=== PATIENT | male | born 1985 | race African-American/Black ===

== ENCOUNTER 2019-09-24 06:47 | Emergency (ER) | payer BC, SELFPAY ==
--- NOTE | ~2019-09-24 | CT_ITS ---
EXAMINATION: CT abdomen pelvis wo con DATE: 09/24/2019 07:57 INDICATION: Left flank pain. TECHNIQUE: Computed tomography (CT) of the abdomen and pelvis was performed without intravenous contr ast. Automated exposure control and iterative reconstruction technique were employed. The dose-length product was 211.67 mGy-cm. COMPARISON: CT abdomen and pelvis 04/17/2019 FINDINGS: The visualized portions of the lung bases are clear without pneumonia or pleural effusion. The heart size is normal. No pericardial effusion. The liver, gallbladder, spleen, pancreas, adrenal glands, and kidneys are normal. There is no urolithiasis. There are surgical changes of small bowel. There is dilated small bowel in left abdomen. The appendix is normal. There are no pathologically enl arged lymph nodes. There is no free intraperitoneal fluid. There is mild thoracolumbar spondylosis. T here is bilateral sacroiliitis, likely inflammatory bowel disease related arthritis. IMPRESSION: 1. Dilated small bowel in left abdomen, likely adynamic ileus. Reviewed, dictated and finalized at location A.
[2019-09-24 07:05] VITALS: BP 140/71; PULSE 82; RESP 20; TEMP 36.5; O2SAT 97
--- NOTE | 2019-09-24 07:16 | ED.ABDPAIN ---
HPI - Abdominal Pain General Chief Complaint: Abdominal Pain Stated Complaint: abd pain Source: patient Mode of arrival: ambulatory Limitations: no limitations History of Present Illness HPI narrative: this is a 34-year-old male with history of Crohn's disease other presents with some chronic abdominal pain that is been off and on for the last 2 to 3 months does have a GI doctor that he follows with. Currently having increased pain that is in his left lower quadrant and into his low left flank area with no nausea vomiting no fever chills no diarrhea constipation his belly is soft it is mildly tender with no dysuria no hematuria. Patient takes chronic opioids for pain relief. MD elicited complaint: abdominal pain and flank pain Pertinent past history: other ( Crohn's disease) Onset (ago): month(s) Pain Consistency: intermittent Location: LLQ and L flank Severity: mild Pain scale (0-10): 5 Quality: dull Radiation: L flank Migration to: LLQ Exacerbating factors: nothing Relieving factors: nothing Associated symptoms: denies other symptoms Related Data Home Medications Medication Instructions Recorded Confirmed alprazolam 0.5 mg PO PRN PRN 09/24/19 09/24/19 budesonide-formoterol 2 puff INHALATION PRN PRN 09/24/19 09/24/19 methocarbamol 750 mg PO DAILY 09/24/19 09/24/19 zolpidem 10 mg PO HS 09/24/19 09/24/19 Allergies Allergy/AdvReac Type Severity Reaction Status Date / Time promethazine Allergy Severe Siezure Verified 08/19/18 18:29 diphenhydramine Allergy Intermediate Hives / Verified 08/19/18 18:29 Red Face ketorolac Allergy Intermediate Verified 08/19/18 18:29 metoclopramide Allergy Intermediate Hives / Verified 08/19/18 18:29 Red Face metronidazole Allergy Intermediate Hives / Verified 08/19/18 18:29 Red Face morphine Allergy Intermediate Hives / Verified 08/19/18 18:29 Red Face tramadol Allergy Intermediate Hives / Verified 08/19/18 18:29 Red Face Review of Systems Review of Systems: All systems reviewed & are unremarkable except as noted in HPI and below PMFSH Past Medical History Medical History Crohn's disease Surgical History Surgical History History of bowel resection Family History Family History Mother Congestive heart failure Father Diabetes mellitus Social History Social History Smoking packs per day: 0.5 Smoking cigarettes per day: 10.0 Years smoked: 20 Smoking pack-years: 10.00 Smoking status: Light tobacco smoker Tobacco type: cigarettes Second hand tobacco smoke exposure: Yes Alcohol intake: current Drinks per week: 2 Substance use: never Substance use type: does not use Gender identity (if verbalized by the patient): Male Spiritual care concerns: No Agree to blood products: Yes Exam Const: General: no acute distress and alert Nutritional Appearance: well nourished Orientation/consciousness: patient oriented x3 HENMT: Head: normal to inspection Eyes: Conjunctivae: conjunctivae normal Pupils: Equal, round and reactive pupils present Neck: Neck: normal visual inspection Chest: Chest palpation & inspection: normal inspection of the chest Resp: Effort & Inspection: normal respiratory effort Cardio: Rate: regular rate Rhythm: regular rhythm GI: GI Palp: Yes Soft to palpation and Yes Tenderness to palpation present (GI) : Male General Exam: Yes normal external exam Testes: Testes normal Skin: General skin exam: normal color Rashes: no rashes Neuro: General: patient oriented x3, moves all extremities and no meningeal signs Extrem: General: normal to inspection Psych: Mental Status: mental status grossly normal Course Vital Signs Vital signs: Vital Signs Temperature 36.5 C 04
[2019-09-24 07:39] LABS: Mean Corpuscular HGB Conc 34.1 g/dL (32.0-36.0); Mean Corpuscular Hemoglobin 28.6 pg (27.0-31.0); Mean Platelet Volume 8.3 fl (8.7-11.0); Platelet Count Result 423 K/mm3 (150-420); Red Blood Count 5.24 M/mm3 (4.70-6.10); Red Cell Distribution Width 13.6 % (11.6-14.4); White Blood Count 13.2 K/mm3 (4.8-10.8)
[2019-09-24 07:40] LABS: Add Urine Microscopic? NO; Appearance Urine Clear (Clear); Bilirubin Urine Negative (Negative); Blood Urine Negative (Negative); Color Urine Yellow (Yellow); Glucose Urine UA Negative (Negative); Ketones Urine Negative (Negative); Leukocyte Esterase Ur Negative (Negative); Nitrate Urine Negative (Negative); Protein Urine Negative (Negative); Urobilinogen Urine 0.2 mg/dL (0.2-1.0); pH Urine 6.5 (5.0-8.0)
[2019-09-24 07:55] LABS: Alanine Aminotransferase 17 U/L (16-63); Alkaline Phosphatase 164 U/L (46-116); Anion Gap 14.2 mmol/L (7-16); Aspartate Amino Transferase 20 U/L (15-37); Bilirubin,Total 0.7 mg/dL (0.00-1.00); Blood Urea Nitrogen 6 mg/dL (7-18); Calcium 8.5 mg/dL (8.5-10.1); Carbon Dioxide 25 mmol/L (21-32); Chloride 105 mmol/L (98-108); Estimated CRCL calculation 85 ml/min; Estimated Glomerular Filt Rate > 60; Glucose 92 mg/dL (70-99); Lipase 312 U/L (73-393); Osmolality Calculated 287 mOsm/kg (285-295); Potassium 4.2 mmol/L (3.5-5.1); Sodium 140 mmol/L (136-145); Total Protein 6.9 g/dL (6.4-8.2)
[2019-09-24 08:20] VITALS: BP 110/75; PULSE 80; RESP 20; TEMP 36.6; O2SAT 99
== END 2019-09-24 08:27 | disposition home or self-care (01) ==
PROVIDERS: Emergency Provider Emergency Medicine; PCP Nurse Practitioner Adult Health
DX: K56.0 Paralytic ileus (principal); R10.32 Left lower quadrant pain; K50.90 Crohn's disease, unspecified, without complications
CPT/HCPCS: 36415; 74176; 80053; 81003; 83605; 83690; 85027; 96365; 99283; 99284; J0131

== ENCOUNTER 2019-10-26 09:31 | Emergency (ER) | payer BC, SELFPAY ==
--- NOTE | ~2019-10-26 | XR_ITS ---
XR chest 2V DATE: 10/26/2019 11:45 INDICATION: Shortness of breath TECHNIQUE: PA and lateral views COMPARISON: None FINDINGS: Bilateral hyperinflation. No pulmonary infiltrate or consolidation, pleural effusion or pul monary vascular congestion or pneumothorax. Normal heart size. No hilar or mediastinal enlargement. Included skeletal structures are unremarkable . There is bilateral excretion of contrast material by the kidneys. IMPRESSION: Bilateral hyperinflation; no active cardiopulmonary disease Reviewed, dictated and finalized at location A.
--- NOTE | ~2019-10-26 | CT_ITS ---
EXAMINATION: CT abdomen pelvis w con DATE: 10/26/2019 11:40 INDICATION: Analyzed abdominal pain and back pain. TECHNIQUE: Computed tomography (CT) of the abdomen and pelvis was performed with 100 mL Omnipaque-350 intravenous contrast. Automated exposure control and iterative reconstruction technique were employe d. The dose-length product was 204.28 mGy-cm. COMPARISON: 09/24/2019 FINDINGS: Lung bases are clear. Visualized inferior heart is normal. No pericardial or pleural effusion. Liver, gallbladder, spleen, pancreas, bilateral adrenal glands and kidneys are normal. Small bowel anastomo sis in the left lower quadrant. No abnormal bowel wall thickening or obstruction. Normal appendix. Di ffuse smooth bladder wall thickening. No free intraperitoneal gas or fluid. No pathologically enlarge d abdominal or pelvic lymphadenopathy. Prominent Schmorl's node along the inferior endplate of L2 whi ch also contains a large bone island. Relatively symmetric bilateral sacroiliitis likely inflammatory bowel disease related arthritis. IMPRESSION: 1. Diffuse smooth bladder wall thickening which can be seen with cystitis either acute or chronic. Co rrelate with urinalysis. 2. Small bowel anastomosis in the left lower quadrant and symmetric bilateral sacroiliitis, both find ings likely related to provided history of Crohn's disease. Reviewed, dictated and finalized at location A. IMPRESSION: 1. Diffuse smooth bladder wall thickening which can be seen with cystitis eithe r acute or chronic. Correlate with urinalysis. 2. Small bowel anastomosis in the left lower quadrant and symmetric bilateral s acroiliitis, both findings likely related to provided history of Crohn's diseas e.
[2019-10-26 10:04] VITALS: BP 111/61; PULSE 83; RESP 18; TEMP 36.6; O2SAT 98
[2019-10-26] MEDS: SODIUM CHLORIDE 0.9% IV 1,000 ML 999 ML IV CONT (10:28)
[2019-10-26] MEDS: ORPHENADRINE CITRATE 100 MG TABLET.ER PO (10:28)
[2019-10-26] MEDS: HYDROMORPHONE HCL 2 MG/ML VIAL IV PUSH (10:29)
[2019-10-26 10:53] LABS: Basophils Absolute Auto 0.05 K/mm3 (0.00-0.10); Basophils Percent Auto 0.5 % (0.0-1.0); Hematocrit 45.9 % (40.0-54.0); Hemoglobin 15.2 g/dL (14.0-18.0); Immature Granulocyte Absolute 0.05 K/mm3 (0.00-0.00); Immature Granulocyte Percent A 0.5 % (0.0-0.0); Lymphocytes Absolute Auto 1.63 K/mm3 (1.10-4.50); Lymphocytes Percent Auto 15.9 % (18.0-42.0); Mean Corpuscular HGB Conc 33.1 g/dL (32.0-36.0); Mean Corpuscular Hemoglobin 28.5 pg (27.0-31.0); Mean Platelet Volume 8.8 fl (8.7-11.0); Monocytes Percent Auto 10.7 % (2.0-11.0); Neutrophils Absolute Auto 7.3 K/mm3 (1.7-7.2); Neutrophils Percent Auto 71.4 % (50.0-70.0); Platelet Count Result 402 K/mm3 (150-420); Red Blood Count 5.34 M/mm3 (4.70-6.10); Red Cell Distribution Width 13.4 % (11.6-14.4); White Blood Count 10.3 K/mm3 (4.8-10.8)
[2019-10-26 11:11] LABS: Alanine Aminotransferase 29 U/L (16-63); Albumin Level 3.1 g/dL (3.4-5.0); Alkaline Phosphatase 174 U/L (46-116); Anion Gap 11.2 mmol/L (7-16); Aspartate Amino Transferase 25 U/L (15-37); Bilirubin,Total 0.9 mg/dL (0.00-1.00); Blood Urea Nitrogen 9 mg/dL (7-18); Calcium 8.5 mg/dL (8.5-10.1); Carbon Dioxide 30 mmol/L (21-32); Chloride 104 mmol/L (98-108); Estimated CRCL calculation 98 ml/min; Estimated Glomerular Filt Rate > 60; Glucose 87 mg/dL (70-99); Lipase 202 U/L (73-393); Osmolality Calculated 289 mOsm/kg (285-295); Potassium 4.2 mmol/L (3.5-5.1); Sodium 141 mmol/L (136-145); Total Protein 7.2 g/dL (6.4-8.2)
[2019-10-26 11:15] LABS: Add Urine Microscopic? NO; Appearance Urine Clear (Clear); Bilirubin Urine Negative (Negative); Blood Urine Negative (Negative); Color Urine Yellow (Yellow); Glucose Urine UA Negative (Negative); Ketones Urine Negative (Negative); Leukocyte Esterase Ur Negative (Negative); Nitrate Urine Negative (Negative); Protein Urine Negative (Negative); Specific Grav Ur 1.015 (1.010-1.020); Urobilinogen Urine 0.2 mg/dL (0.2-1.0)
[2019-10-26 11:52] VITALS: BP 98/58; PULSE 65; RESP 16; O2SAT 98
--- NOTE | 2019-10-26 11:59 | PC.NURSE ---
Pt requesting more pain meds, edp aware
--- NOTE | 2019-10-26 12:06 | ED.BACK ---
HPI - Back Pain/Injury General Chief Complaint: Back Pain/Injury Stated Complaint: back and abd area complications Source: patient Mode of arrival: ambulatory Limitations: no limitations History of Present Illness HPI Narrative: this is a 34-year-old male with a history of Crohn's disease that presents with abdominal pain and left lower back pain with no dysuria no hematuria no fever or chills there is some point tenderness in his lower back, there is no cough no fever abdominal pain is some lower abdomen with no radiation. MD elicited complaint: back pain Pertinent past history: prior back pain Onset (ago): day(s) Timing: intermittent Severity: moderate Pain scale (0-10): 8 Quality: aching and spasming Location: left lower back Radiation: abdomen Exacerbating factors: movement Relieving factors: immobilization Related Data Home Medications Medication Instructions Recorded Confirmed alprazolam 0.5 mg PO PRN PRN 09/24/19 10/26/19 budesonide-formoterol 2 puff INHALATION PRN PRN 09/24/19 10/26/19 zolpidem 10 mg PO HS 09/24/19 10/26/19 Allergies Allergy/AdvReac Type Severity Reaction Status Date / Time promethazine Allergy Severe Siezure Verified 08/19/18 18:29 diphenhydramine Allergy Intermediate Hives / Verified 08/19/18 18:29 Red Face ketorolac Allergy Intermediate Verified 08/19/18 18:29 metoclopramide Allergy Intermediate Hives / Verified 08/19/18 18:29 Red Face metronidazole Allergy Intermediate Hives / Verified 08/19/18 18:29 Red Face morphine Allergy Intermediate Hives / Verified 08/19/18 18:29 Red Face tramadol Allergy Intermediate Hives / Verified 08/19/18 18:29 Red Face Review of Systems Review of Systems: All systems reviewed & are unremarkable except as noted in HPI and below PMFSH Social History Social History Smoking packs per day: 0.5 Smoking cigarettes per day: 10.0 Years smoked: 20 Smoking pack-years: 10.00 Smoking status: Light tobacco smoker Tobacco type: cigarettes Second hand tobacco smoke exposure: Yes Alcohol intake: current Drinks per week: 2 Substance use: never Substance use type: does not use Gender identity (if verbalized by the patient): Male Spiritual care concerns: No Agree to blood products: Yes Exam Const: General: no acute distress and alert Orientation/consciousness: patient oriented x3 Limitations: altered mental status HENMT: Head: normal to inspection Eyes: Conjunctivae: conjunctivae normal Pupils: Equal, round and reactive pupils present EOM: EOMs intact bilaterally Neck: Neck: normal visual inspection and no lymphadenopathy Chest: Chest palpation & inspection: normal inspection of the chest Resp: Effort & Inspection: normal respiratory effort Auscultation: clear to auscultation bilaterally Cardio: Rate: regular rate Rhythm: regular rhythm GI: Auscultation: normal bowel sounds Back/Spine/Pelvis: Back: CVA tenderness Skin: General skin exam: normal color Rashes: no rashes Extrem: General: normal to inspection Psych: Mental Status: mental status grossly normal Course Course Emergency Course: Received some Dilaudid and pain had improved moderately, patient appears more comfortable is less abdominal and back pain. A CT scan of abdomen and pelvis was reviewed with patient and sent medication to patient's pharmacy with the recommendation to follow-up with his primary care physician. Vital Signs Vital signs: Vital Signs Temperature 36.6 C 10/26/19 10:04 Pulse Rate 83 10/26/19 10:04 Respiratory Rate 18 10/26/19 10:04 Blood Pressure 111/61 10/26/19 10:04 Pulse Oximetry 98 10/26/19 10:04 Temperature 36.6 C 10/26/19 10:04 Pulse Rate 65 10/26/19 11:52 Respiratory Rate 16 10/26/19 11:52 Blood Pressure 98/58 L 10/26/19 11:52 Pulse Oximetry 98 10/26/19 11:52 MDM - Back Pain/Injury Lab Data Result d
== END 2019-10-26 12:24 | disposition home or self-care (01) ==
PROVIDERS: Emergency Provider Emergency Medicine; PCP Nurse Practitioner Adult Health
DX: S39.012A Strain of muscle, fascia and tendon of lower back, initial encounter (principal); R10.30 Lower abdominal pain, unspecified
CPT/HCPCS: 36415; 71046; 74177; 80053; 81003; 83690; 85025; 96374; 99283; 99284; A9270; J1170; J7030; Q9965

== ENCOUNTER 2019-11-21 18:45 | Emergency (ER) | payer BC, SELFPAY ==
--- NOTE | ~2019-11-21 | CT_ITS ---
EXAMINATION: CT abdomen pelvis w con DATE: 11/21/2019 20:09 INDICATION: Left lower quadrant abdominal pain. Left flank pain. TECHNIQUE: Computed tomography (CT) of the abdomen and pelvis was performed with 100 mL Omnipaque 350 intravenous contrast. Automated exposure control and iterative reconstruction technique were employe d. The dose-length product was 171.09 mGy-cm. COMPARISON: CT abdomen and pelvis 10/26/2019 FINDINGS: The visualized portions of the lung bases are clear without pneumonia or pleural effusion. The heart size is normal. No pericardial effusion. The liver, gallbladder, spleen, and adrenal glands are normal. Pancreas divisum is noted. The kidneys are normal. There is a dilated loop of small manas l in right abdomen. There is focal small bowel wall thickening at the margin of the dilated loop. The re are no pathologically enlarged lymph nodes. There is no free intraperitoneal fluid. There is bilat eral sacroiliitis, consistent with inflammatory bowel disease associated arthropathy. There is mild t horacolumbar spondylosis. The appendix is normal. There is a small bowel anastomosis in left abdomen. IMPRESSION: 1. Focal small bowel wall thickening of right abdomen with adjacent dilated loop of small bowel, cons istent with partial small bowel obstruction. Reviewed, dictated and finalized at location A. IMPRESSION: 1. Focal small bowel wall thickening of right abdomen with adjacent dilated loo p of small bowel, consistent with partial small bowel obstruction.
[2019-11-21 19:06] VITALS: BP 95/63; PULSE 87; RESP 17; TEMP 36.7; O2SAT 97
[2019-11-21] MEDS: LACTATED RINGERS 1,000 ML 999 ML IV CONT (19:38)
[2019-11-21] MEDS: HYDROMORPHONE HCL 2 MG/ML VIAL 1 MG IV PUSH ×2 (19:38→21:10)
[2019-11-21 19:39] LABS: Add Urine Microscopic? YES; Appearance Urine Clear (Clear); Basophils Absolute Auto 0.05 K/mm3 (0.00-0.10); Basophils Percent Auto 0.5 % (0.0-1.0); Bilirubin Urine 1+ (Negative); Blood Urine Negative (Negative); Color Urine Yellow (Yellow); Eosinophils Absolute Auto 0.14 K/mm3 (0.02-0.50); Eosinophils Percent Auto 1.3 % (1.0-6.0); Glucose Urine UA Negative (Negative); Hematocrit 48.1 % (40.0-54.0); Hemoglobin 16.2 g/dL (14.0-18.0); Immature Granulocyte Absolute 0.05 K/mm3 (0.00-0.00); Immature Granulocyte Percent A 0.5 % (0.0-0.0); Ketones Urine Trace (Negative); Leukocyte Esterase Ur Negative LEU/UL (Negative); Lymphocytes Absolute Auto 2.02 K/mm3 (1.10-4.50); Lymphocytes Percent Auto 18.8 % (18.0-42.0); Mean Corpuscular HGB Conc 33.7 g/dL (32.0-36.0); Mean Corpuscular Hemoglobin 28.4 pg (27.0-31.0); Mean Corpuscular Volume 84.4 fL (78.0-102.0); Mean Platelet Volume 8.4 fl (8.7-11.0); Monocytes Absolute Auto 1.01 K/mm3 (0.10-0.90); Monocytes Percent Auto 9.4 % (2.0-11.0); Neutrophils Absolute Auto 7.5 K/mm3 (1.7-7.2); Neutrophils Percent Auto 69.5 % (50.0-70.0); Nitrate Urine Negative (Negative); Platelet Count Result 474 K/mm3 (150-420); Protein Urine Negative (Negative); Red Cell Distribution Width 13.2 % (11.6-14.4); White Blood Count 10.7 K/mm3 (4.8-10.8); pH Urine 7.5 (5.0-8.0)
[2019-11-21 19:45] LABS: RBC Urine None seen /hpf (0-2); Squamous Epithelial Cell Urine None seen /hpf (Few); WBC Urine None seen /hpf (0-3)
[2019-11-21 19:46] LABS: Bacteria Urine None seen /hpf; Mucus Urine Moderate /lpf
--- NOTE | 2019-11-21 19:47 | ED.ABDPAIN ---
HPI - Abdominal Pain General Chief Complaint: Abdominal Pain Stated Complaint: abdominal pain Source: patient Mode of arrival: ambulatory Limitations: no limitations History of Present Illness HPI narrative: 34 y.o. male with Crohn's Disease, s/p partial small and large bowel resection, c/o 3 days of severe left sided and left flank pain. Vomited chunks of food x 2 today; loose but formed stools x 3 today, streaked with blood and mucous. C/o fatigue. He's had abdominal pain off and on since July. His PCP put him on prednisone 40 in September, tapered to 20 mg x 1 month, then stopped 11/12/2019. His last injection of Stelara was in May. He lost his [employer] insurance in June, has had Medicaid for the last 6 weeks. He does not have a g.i. doctor at this point. Denies fevers/chills. Related Data Home Medications Medication Instructions Recorded Confirmed alprazolam 0.5 mg PO PRN PRN 09/24/19 11/22/19 budesonide-formoterol 2 puff INHALATION BID 09/24/19 11/22/19 zolpidem 10 mg PO HS 09/24/19 11/22/19 Allergies Allergy/AdvReac Type Severity Reaction Status Date / Time promethazine Allergy Severe Siezure Verified 08/19/18 18:29 diphenhydramine Allergy Intermediate Hives / Verified 08/19/18 18:29 Red Face ketorolac Allergy Intermediate Verified 08/19/18 18:29 metoclopramide Allergy Intermediate Hives / Verified 08/19/18 18:29 Red Face metronidazole Allergy Intermediate Hives / Verified 08/19/18 18:29 Red Face morphine Allergy Intermediate Hives / Verified 08/19/18 18:29 Red Face tramadol Allergy Intermediate Hives / Verified 08/19/18 18:29 Red Face Review of Systems Constitutional: Constitutional: Reports no additional constitutional complaints ENT: Denies dysphagia Cardiovascular: Cardiovascular: Denies chest pain Respiratory: Respiratory: Denies cough and Denies dyspnea Gastrointestinal: Gastrointestinal: Reports no additional gastrointestinal complaints Genitourinary: Genitourinary: Denies dysuria Musculoskeletal: Musculoskeletal: Denies arthralgias and Denies joint swelling Integumentary/Breasts: Skin/Breast: Denies rash Neurologic: Denies numbness Psychiatric: Psychiatric: Denies anxiety and Reports depression (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 motivational thinking 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) Hematologic/Lymphatic: Hematologic/Lymphatic: Denies easy bleeding PMFSH Past Medical History Medical History (Updated 11/22/19 @ 04:16 by Loida Palafox DO) Asthma Crohn's disease Depression Eczema Surgical History Surgical History (Updated 11/22/19 @ 04:16 by Loida Palafox DO) History of bowel resection X2: 8 ft bowel resected the 1st surgery and 4.5 feet resected 2nd surgery Family History Family History Mother Congestive heart failure Father Diabetes mellitus Social History Social History Smoking packs per day: 0.5 Smoking cigarettes per day: 10.0 Years smoked: 1 Smoking pack-years: 0.50 Smoking status: Current every day smoker Tobacco type: cigarettes Second hand tobacco smoke exposure: Yes Alcohol intake: never Drinks per week: 2 Substance use: current Substance use type: marijuana Last use: 11/21/2019 Gender identity (if verbalized by the patient): Male Spiritual care concerns: No Agree to blood products: Yes Exam Const: Other: appears to be in pain HENMT: Mouth: Yes moist mucous membranes Eyes: Other: no icterus Neck: Neck: lymphadenopathy noted Chest: Chest palpation & inspection: abnormal inspection of the chest Resp: Auscultation: clear to auscultation bilaterally Cardio: Rate: regular rate Rhythm: regular rhythm GI: GI Palp: Yes Tenderness to palpation present (GI) (left lateral abdomen and flank) and Yes Guarding due to palpation present (GI) Auscultation: Hypoactive bowel sounds present : General: Ye
[2019-11-21 19:56] LABS: Alanine Aminotransferase 23 U/L (16-63); Albumin Level 3.5 g/dL (3.4-5.0); Alkaline Phosphatase 206 U/L (46-116); Aspartate Amino Transferase 22 U/L (15-37); Bilirubin,Total 0.8 mg/dL (0.00-1.00); Blood Urea Nitrogen 8 mg/dL (7-18); Calcium 9.1 mg/dL (8.5-10.1); Carbon Dioxide 30 mmol/L (21-32); Chloride 100 mmol/L (98-108); Estimated Glomerular Filt Rate > 60; Glucose 83 mg/dL (70-99); Lipase 307 U/L (73-393); Osmolality Calculated 281 mOsm/kg (285-295); Sodium 137 mmol/L (136-145); Total Protein 8.1 g/dL (6.4-8.2)
--- NOTE | 2019-11-21 20:57 | PC.NURSE ---
[facility] CALLED FOR POSSIBLE TRANSFER
[2019-11-21 22:29] VITALS: BP 120/60
[2019-11-21] MEDS: methylPREDNISolone SOD SUCC 40 MG VIAL 80 MG IV PUSH (22:40)
[2019-11-21 23:02] VITALS: BP 107/77
== END 2019-11-21 23:05 | disposition short-term general hospital (02) ==
PROVIDERS: Emergency Provider Family Medicine; PCP Nurse Practitioner Adult Health
DX: K50.912 Crohn's disease, unspecified, with intestinal obstruction (principal)
CPT/HCPCS: 36415; 74177; 80053; 81001; 83690; 85025; 86140; 96361; 96374; 96375; 96376; 99285; J1170; J2920; J2930; J7120; Q9965

== ENCOUNTER 2019-11-21 23:45 | Inpatient (IN) | payer BC, SELFPAY ==
--- NOTE | ~2019-11-21 | XR_ITS ---
EXAMINATION: XR abdomen/kub 1V DATE: 11/22/2019 08:02 INDICATION: Partial small bowel obstruction. TECHNIQUE: A supine view of the abdomen was obtained. COMPARISON: CT abdomen and pelvis 11/21/2019 FINDINGS: There are staple lines in left abdomen. There are no dilated loops of bowel. There is a sma ll volume of stool in the colon. IMPRESSION: 1. Nonobstructive bowel gas pattern. Reviewed, dictated and finalized at location A.
[2019-11-21 23:40] VITALS: BMI 21.2
[2019-11-22] MEDS: SODIUM CHLORIDE 0.45% 1,000 ML 100 ML IV CONT (01:24)
[2019-11-22] MEDS: LORAZEPAM INJ 2 MG/ML VIAL 1 MG IV PUSH ×2 (01:24→21:58)
[2019-11-22] MEDS: HYDROMORPHONE HCL 1 MG/ML INJ IV PUSH ×6 (01:24→21:57)
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
[2019-11-22 06:52] LABS: Basophils Percent Auto 0.3 % (0.2-1.2); Hematocrit 47.3 % (42.0-52.0); Hemoglobin 15.9 g/dL (14.0-18.0); Immature Granulocyte Absolute 0.08 K/mm3 (0.00-0.031); Immature Granulocyte Percent A 0.6 % (0-0.5); Lymphocytes Absolute Auto 0.97 K/mm3 (0.9-3.2); Lymphocytes Percent Auto 7.4 % (18.3-44.2); Mean Corpuscular HGB Conc 33.6 g/dl (32-36); Mean Corpuscular Hemoglobin 28.6 pg (26-34); Mean Corpuscular Volume 85.1 fl (80-100); Monocytes Absolute Auto 0.1 K/mm3 (0.1-0.6); Monocytes Percent Auto 0.6 % (2.6-8.5); Neutrophils Absolute Auto 11.9 K/mm3 (1.3-6.7); Neutrophils Percent Auto 91.1 % (45.5-73.1); Platelet Count Result 452 k/mm3 (150-375); Red Blood Count 5.56 M/mm3 (4.6-6.20); Red Cell Distribution Width 13.1 % (11.5-14.5); White Blood Count 13.1 K/mm3 (4.5-10.0)
[2019-11-22 07:06] LABS: Blood Urea Nitrogen 11 mg/dL (9-20); Calcium 9.3 mg/dL (8.4-10.2); Carbon Dioxide 26 mmol/L (22-30); Chloride 102 mmol/L (98-107); Estimated CRCL calculation 107 ml/min; Estimated Glomerular Filt Rate > 60; Glucose 106 mg/dL (75-110); Potassium 4.4 mmol/L (3.4-5.0); Sodium 135 mmol/L (137-145)
[2019-11-22] MEDS: methylPREDNISolone SOD SUCC 125 MG VIAL 60 MG IV PUSH (09:08)
--- NOTE | 2019-11-22 10:34 | PM.IMPN ---
Progress Note: A&P Assessment and Plan (1) Crohn's disease: Qualifiers: Digestive disease complication type: with intestinal obstruction Gastrointestinal tract location: unspecified location Qualified Code(s): K50.912 - Crohn's disease, unspecified, with intestinal obstruction Code(s): K50.90 - Crohn's disease, unspecified, without complications Status: Acute Assessment and Plan: The patient has not been on his suppressive medications and has not seen his GI specialist due to lack of insurance over the last few months. He was given 1 dose of IV Solu-Medrol before transferring to our facility. We will continue with IV Solu-Medrol 60 mg q.8 hours Continue with IV fluid hydration GI started him on a full liquid diet and will slowly advanced as tolerated. Will continue monitoring the patient's symptoms and repeat labs in the morning. GIs input is greatly appreciated. (2) Partial small bowel obstruction: Code(s): K56.600 - Partial intestinal obstruction, unspecified as to cause Status: Acute Assessment and Plan: Likely due to the patient's Crohn's disease. General surgery discussed the patient's case with the ER provider at the outside facility and the surgeon felt the patient likely did not need a surgical consult since the patient had a partial small-bowel obstruction. Patient still reporting pain but would like to eat. GI started him on a full liquid diet. KUB from this morning is still pending. Will see how he does with eating and drinking and slowly advance his diet as tolerated.. Time Spent With Patient Time with patient: 25 - 35 minutes Subjective Date/time seen: 11/22/19 10:34 Interval history: Date of service 11/22/2019: Patient reports he is feeling better after getting the pain medications and steroids. He is still having some abdominal discomfort to his left lower quadrant mostly and currently it is a 7/10 but whenever he gets pain meds it dropped to about 3/10. He denies any fevers, chills. He would like to start eating at this time and has a full liquid tray at bedside. He also reports left flank pain which has been hurting him for the last 2 months which is worse with certain movements, twisting, bending, poking on the area. He denies any relief with the steroid taper he was on at home and denies any trauma to the area prior to pain beginning. He denies any nausea, vomiting, chest pain, shortness of breath, cough, diarrhea, hematochezia, melena, leg swelling, calf pain or any other symptoms at this time. Review of Systems Review of Systems: All systems reviewed & are unremarkable except as noted in HPI and below Exam Narrative: Exam Narrative: General: 34-year-old man sitting up in bed talking to the cleaning lady. Appears comfortable. In no acute distress. Skin: No jaundice or cyanosis. Good skin turgor. Neck: Full range of motion. Supple. Respiratory: Lungs are clear to auscultation bilaterally. No bony chest wall tenderness. Cardiovascular: The heart has a regular rate and rhythm without murmur. No carotid bruits. Lower extremities: No lower extremity edema. Distal pulses are easily palpated. No calf tenderness to palpation. Gastrointestinal: Tenderness to palpation of left lower quadrant, no rebound or guarding. The abdomen is otherwise soft, nondistended with active bowel sounds. Psychiatric: Lucid and oriented. Memory intact. Neurologic: No focal deficits. Speech is clear. No facial drooping. Objective Data Intake/Output Intake/Output: Intake & Output 11/19/19 11/20/19 11/21/19 11/22/19 23:59 23:59 23:59 23:59 Intake Total 0 Output Total 0 Balance 0 Meds/Results Medications: Active Medications Generic Name Dose Route Start Last Admin Trade Name Freq PRN Reason Stop Dose Admin Budesonide/Formoterol Fumarate 2 puff 11/22/19 08
--- NOTE | 2019-11-22 11:17 | WPDGICN ---
Assessment and Plan Assessment and plan (1) Crohn's disease of both small and large intestine with complication: Code(s): K50.819 - Crohn's disease of both small and large intestine with unspecified complications Status: Acute Assessment and Plan: complicated history with previous surgeries, use of anti-TNF and recently stelara but could not afford it anymore, he is here for flare continue with iv solumedrol, he would like to try diet again (no nausea and having BM's), he is already feeling better after he leaves the hospital will contact his GI doctor (just got new insurance again), most likely will need to go home with long term care pharmacist prednisone until he can be back on stelara. (2) Partial small bowel obstruction: Code(s): K56.600 - Partial intestinal obstruction, unspecified as to cause Status: Acute Assessment and Plan: clinically much better, will advance diet had multiple surgeries, he also says that had colonic stricture in recent colonoscopy- will need follod up with his GI and CRS doctors. (3) Abdominal pain: Qualifiers: Abdominal location: lower abdomen, unspecified Qualified Code(s): R10.30 - Lower abdominal pain, unspecified Code(s): R10.9 - Unspecified abdominal pain Status: Acute Assessment and Plan: improved (4) Nausea: Code(s): R11.0 - Nausea Status: Acute GI Consult Note Consult date/time: 11/22/19 11:17 Reason for consult: crohn's disease, abdominal pain HPI: Ovidio Freitas is a 34 year old male with Crohn's disease since 9 yo, he had 2 small surgery resection and then partial colectomy in 2013 because stricture. 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 He was admitted early this year at [facility] with a flare, he says that had EGD and colonoscopy, found to have another stricture and he has been evaluated also by Dr Clancy, colorectal surgeon. He has been unable to see his GI doctor since lost insurance however just started a new job and hoping that he can see him fairly soon again. He is here with few weeks of left flank pain with radiation to his abdomen, 2 days of nausea. He completed treatment with prednisone about 2 weeks ago given by his primary. He has been having bowel movements, no fever. He went to another ER, CT scan showed focal small bowel wall thickening of right abdomen with adjacent dilated loop of small bowel, consistent with partial small bowel obstruction. He denies any nausea in fact is hungry and would like to eat now. Also having BM's. Now on iv solumedrol. He says that normally can not tolerate high dose of oral prednisone, normally will use 10mg. Review of Systems Constitutional: Constitutional: Denies headache(s) and Denies weakness Eyes: Eyes: Denies blurry vision ENT: Reports Normal hearing present, Denies headache(s) and Denies neck pain Cardiovascular: Cardiovascular: Denies chest pain and Denies dyspnea Respiratory: Respiratory: Denies dyspnea Gastrointestinal: Gastrointestinal: Reports no additional gastrointestinal complaints Genitourinary: Genitourinary: Denies dysuria Musculoskeletal: Musculoskeletal: Denies neck pain Integumentary/Breasts: Skin/Breast: Denies dry skin Neurologic: Reports Normal hearing present, Denies headache(s) and Denies weakness Psychiatric: Psychiatric: Denies anxiety Endocrine: Endocrine: Denies change in body appearance Hematologic/Lymphatic: Hematologic/Lymphatic: Denies easy bleeding Allergic/Immunologic: Allergic/Immunologic: Denies urticaria PMFSH Past Medical History Medical History (Updated 11/22/19 @ 11:27 by Turner Sifuentes MD) Asthma Crohn's disease Crohn's disease of both small and large
[2019-11-22] MEDS: SODIUM CHLORIDE 0.45% 1,000 ML 70 ML IV CONT (12:37)
[2019-11-22 14:00] VITALS: BP 100/53; PULSE 98; RESP 18; TEMP 36.3; O2SAT 97
[2019-11-22] MEDS: methylPREDNISolone SOD SUCC 40 MG VIAL IV PUSH ×2 (14:19→22:58)
[2019-11-22 21:45] VITALS: BP 113/55; PULSE 88; RESP 16; TEMP 36.4; O2SAT 93
[2019-11-23] MEDS: HYDROMORPHONE HCL 1 MG/ML INJ IV PUSH ×2 (01:17→04:16)
[2019-11-23] MEDS: SODIUM CHLORIDE 0.45% 1,000 ML 70 ML IV CONT (03:22)
[2019-11-23 05:40] VITALS: BP 108/52; PULSE 81; RESP 16; TEMP 36.6; O2SAT 98
[2019-11-23 05:49] LABS: Basophils Percent Auto 0.2 % (0.2-1.2); Hematocrit 42.7 % (42.0-52.0); Hemoglobin 14.7 g/dL (14.0-18.0); Immature Granulocyte Absolute 0.44 K/mm3 (0.00-0.031); Immature Granulocyte Percent A 1.9 % (0-0.5); Lymphocytes Percent Auto 6.1 % (18.3-44.2); Mean Corpuscular HGB Conc 34.4 g/dl (32-36); Mean Corpuscular Hemoglobin 28.4 pg (26-34); Mean Corpuscular Volume 82.4 fl (80-100); Mean Platelet Volume 8.7 fl (7.4-10.4); Monocytes Absolute Auto 1.2 K/mm3 (0.1-0.6); Neutrophils Absolute Auto 19.9 K/mm3 (1.3-6.7); Neutrophils Percent Auto 86.8 % (45.5-73.1); Platelet Count Result 473 k/mm3 (150-375); Red Blood Count 5.18 M/mm3 (4.6-6.20); Red Cell Distribution Width 12.8 % (11.5-14.5)
[2019-11-23 06:04] LABS: Blood Urea Nitrogen 12 mg/dL (9-20); CRP 1.1 mg/dL (<1.0); Calcium 9.1 mg/dL (8.4-10.2); Carbon Dioxide 27 mmol/L (22-30); Chloride 103 mmol/L (98-107); Estimated CRCL calculation 123 ml/min; Estimated Glomerular Filt Rate > 60; Glucose 131 mg/dL (75-110); Potassium 4.3 mmol/L (3.4-5.0); Sodium 135 mmol/L (137-145)
[2019-11-23] MEDS: methylPREDNISolone SOD SUCC 40 MG VIAL IV PUSH (06:05)
--- NOTE | 2019-11-23 09:06 | WPDGIPROGNO ---
Progress Note: A&P Assessment and Plan (1) Crohn's disease of both small and large intestine with complication: Code(s): K50.819 - Crohn's disease of both small and large intestine with unspecified complications Status: Acute Assessment and Plan: he is having normal BM's, ok to go home with slow prednisone taper (40 mg daily and reduce 5mg each week)- he also will call his GI doctor and hopefully can get back on stelara. (2) Partial small bowel obstruction: Code(s): K56.600 - Partial intestinal obstruction, unspecified as to cause Status: Acute Assessment and Plan: resolved, tolerating diet (3) Abdominal pain: Qualifiers: Abdominal location: lower abdomen, unspecified Qualified Code(s): R10.30 - Lower abdominal pain, unspecified Code(s): R10.9 - Unspecified abdominal pain Status: Acute Assessment and Plan: patient would like to go home with some pain meds (4) Leukocytosis: Code(s): D72.829 - Elevated white blood cell count, unspecified Status: Acute Assessment and Plan: probably from steroids, no fever Subjective Date/time seen: 11/23/19 09:06 Interval history: he feels better, he is having BM's, no vomiting and tolerating diet. Still with pain in flank as usual. He thinks that can go home today Review of Systems Review of Systems: All systems reviewed & are unremarkable except as noted in HPI and below Exam Const: General: comfortable and no acute distress Nutritional Appearance: thin HENMT: General nose exam: Normal nares present Eyes: General: appearance normal, both eyes and all related structures Neck: Neck: no JVD Resp: Auscultation: clear to auscultation bilaterally Cardio: Rate: regular rate Rhythm: regular rhythm GI: Inspection: non-distended GI Palp: Yes Soft to palpation Auscultation: normal bowel sounds Other: surgical scar Skin: General skin exam: normal color Neuro: General: gait normal Speech: normal speech Extrem: General: normal to inspection Psych: Mental Status: mental status grossly normal Objective Data Vital Signs Vital Signs: Vital Signs - 24 hr 11/22/19 14:00 11/22/19 21:45 11/23/19 05:40 Temperature 97.4 F L 97.5 F L 97.9 F Pulse Rate 98 88 81 Respiratory Rate 18 16 16 Blood Pressure 100/53 L 113/55 L 108/52 L Pulse Oximetry 97 93 98 Intake/Output Intake/Output: Intake & Output 11/20/19 11/21/19 11/22/19 11/23/19 23:59 23:59 23:59 23:59 Intake Total 2770 1550 Output Total 475 1750 Balance 2295 -200 Meds/Results Medications: Active Medications Generic Name Dose Route Start Last Admin Trade Name Freq PRN Reason Stop Dose Admin Hydrocodone Bitart/Acetaminophen 1 tab 11/23/19 08:12 [place] 5-325 Mg PO Q4H PRN Pain Rated 4-6 Hydrocodone Bitart/Acetaminophen 1 tab 11/23/19 08:13 11/23/19 08:30 [place] 7.5-325 Mg PO 1 tab Q4H PRN Administration Pain Rated 7-10 Budesonide/Formoterol Fumarate 2 puff 11/22/19 08:00 11/23/19 06:25 Symbicort 160-4.5 Mcg (*Sp) Inhaler INHALATION 2 puff Q12HRT BETH Administration Lorazepam 1 mg 11/22/19 01:09 11/22/19 21:58 Ativan Inj IV PUSH 1 mg Q6H PRN Administration Anxiety Methylprednisolone Sodium Succinate 40 mg 11/22/19 14:00 11/23/19 06:05 Solu-Medrol IV PUSH 40 mg Q8HR BETH Administration Radiology Results: ITS Impressions Abdomen X-Ray 11/22/19 14:41 IMPRESSION: 1. Nonobstructive bowel gas pattern. Labs Labs: Laboratory Results - last 24 hr 11/23/19 11/23/19 05:01 05:01 WBC 23.0 H RBC 5.18 Hgb 14.7 Hct 42.7 MCV 82.4 MCH 28.4 MCHC 34.4 RDW 12.8 Plt Count 473 H MPV 8.7 Immature Gran % (Auto) 1.9 H Neut % (Auto) 86.8 H Lymph % (Auto) 6.1 L [place] % (Auto) 5.0 Eos % (Auto) 0.0 Baso % (Auto) 0.2 Lymph # (Auto) 1.40 [place] # (Auto) 1.2 H Eos # (Auto) 0.0 Baso # (Auto) 0.0 Abs Imm
--- NOTE | 2019-11-23 10:37 | PM.DS ---
DS: Admitting Diagnosis Admitting Diagnosis Admitting Diagnosis: Crohn's disease, unspecified, with intestinal obstruction DS: Discharge Diagnosis Discharge Diagnosis (1) Crohn's disease: Qualifiers: Digestive disease complication type: with intestinal obstruction Gastrointestinal tract location: unspecified location Qualified Code(s): K50.912 - Crohn's disease, unspecified, with intestinal obstruction Code(s): K50.90 - Crohn's disease, unspecified, without complications Status: Acute Assessment and Plan: The patient has not been on his suppressive medications and has not seen his GI specialist due to lack of insurance over the last few months. He was given 1 dose of IV Solu-Medrol before transferring to our facility. We will continue with IV Solu-Medrol 60 mg q.8 hours, then decrease to 40 mg q.8 by GI At this time his pain is being 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 [place]. He is eating a regular diet without any issues. He is stable to be discharged home from a medical and GI perspective to follow-up with his GI specialist within the next 1 week. He will be discharged on a long prednisone taper until he can get started back on his Crohn's medications he has been on in the past (2) Partial small bowel obstruction: Code(s): K56.600 - Partial intestinal obstruction, unspecified as to cause Status: Acute Assessment and Plan: Likely due to the patient's Crohn's disease. General surgery discussed the patient's case with the ER provider at the outside facility and the surgeon felt the patient likely did not need a surgical consult since the patient had a partial small-bowel obstruction. KUB yesterday showed resolution of his partial small-bowel obstruction. His pain has improved he is on a regular diet which he is tolerating without any issues. Plan for discharge to follow-up with his GI specialist. DS: Summary Hospital Course Reason for hospitalization: Patient is a 34-year-old man with a history of Crohn's disease since 9 years of age, who presented to the emergency department with worsening abdominal pain. The patient was transferred from [facility] to our facility for a GI consultation. Initial vitals showed Temperature of 98?, blood pressure 95/63, heart rate 87, respiratory rate 17, oxygen saturation 97% on room air. Initial labs showed normal CBC with differential, normal CMP. Elevated CRP at 3.0. Normal urinalysis. CT abdomen showed focal small bowel wall thickening of right abdomen with adjacent dilated loop of small bowel, consistent with a partial small-bowel obstruction. The patient was transferred to our facility for partial small-bowel obstruction and accepted to the hospitalist service with a consult to GI after is believed to be caused by his Crohn's disease flare. Patient was given IV steroids, IV pain medications, IV fluids with improvement of his symptoms. The patient is back on a regular diet at this time, pain is better controlled and GI recommended him having a long steroid taper. The patient has a GI specialist but has been able to see him for months because he lost his insurance. Now the patient has a new insurance and will need to make an appointment with his GI doctor to get started on his medications. Patient understands and agrees with the plan all questions answered. Status at Discharge Cognitive/behavioral status at discharge: Stable, improved. Time Spent with Patient Time attestation: Total time spent providing and/or coordinating discharge services: Time spent: Greater than 30 minutes Exam Narrative: Exam Narrative: General: 34-year-old man laying in bed watching TV. Appears comfortable. In no acute distress. Skin: No jaundice or cyanosis. Good skin turgor. Neck: Full range of motion. Supple. Respiratory: Lungs are
--- NOTE | 2019-11-23 13:15 | PCCCNOTE ---
On 11/23/19, the student, Roseanna Smith, provided care and completed [facility] documentation on this patient. I have reviewed the student's documentation and agree with the findings.
== END 2019-11-23 14:30 | disposition home or self-care (01) | DRG 245 ==
PROVIDERS: Physician Assistant; Admitting Provider Internal Medicine; PCP Nurse Practitioner Adult Health; Visit Provider Family Medicine
DX: K50.812 Crohn's disease of both small and large intestine with intestinal obstruction (principal); D72.829 Elevated white blood cell count, unspecified; F17.210 Nicotine dependence, cigarettes, uncomplicated; Z90.49 Acquired absence of other specified parts of digestive tract
CPT/HCPCS: 36415; 74018; 80048; 85025; 86140; 94640; 96361; 96365; 96375; 96376; A9270; G0378; J0131; J1170; J2060; J2920; J2930

== ENCOUNTER 2019-12-15 02:21 | Emergency (ER) | payer BC, SELFPAY ==
[2019-12-15 02:32] VITALS: BP 121/70; PULSE 77; RESP 16; TEMP 36.6; O2SAT 96
[2019-12-15] MEDS: ONDANSETRON INJ 4 MG/2 ML VIAL IV PUSH (03:02)
[2019-12-15] MEDS: SODIUM CHLORIDE 0.9% IV 1,000 ML 999 ML IV CONT (03:02)
[2019-12-15 03:05] LABS: Basophils Absolute Auto 0.05 K/mm3 (0.00-0.10); Basophils Percent Auto 0.4 % (0.0-1.0); Eosinophils Absolute Auto 0.13 K/mm3 (0.02-0.50); Eosinophils Percent Auto 1.2 % (1.0-6.0); Hematocrit 43.9 % (40.0-54.0); Hemoglobin 14.9 g/dL (14.0-18.0); Immature Granulocyte Absolute 0.08 K/mm3 (0.00-0.00); Immature Granulocyte Percent A 0.7 % (0.0-0.0); Lymphocytes Absolute Auto 1.99 K/mm3 (1.10-4.50); Lymphocytes Percent Auto 17.9 % (18.0-42.0); Mean Corpuscular HGB Conc 33.9 g/dL (32.0-36.0); Mean Corpuscular Hemoglobin 28.5 pg (27.0-31.0); Mean Corpuscular Volume 83.9 fL (78.0-102.0); Mean Platelet Volume 8.4 fl (8.7-11.0); Monocytes Absolute Auto 1.09 K/mm3 (0.10-0.90); Monocytes Percent Auto 9.8 % (2.0-11.0); Neutrophils Absolute Auto 7.8 K/mm3 (1.7-7.2); Platelet Count Result 425 K/mm3 (150-420); Red Blood Count 5.23 M/mm3 (4.70-6.10); Red Cell Distribution Width 13.3 % (11.6-14.4); White Blood Count 11.1 K/mm3 (4.8-10.8)
[2019-12-15 03:19] LABS: Alanine Aminotransferase 19 U/L (16-63); Albumin Level 3.2 g/dL (3.4-5.0); Alkaline Phosphatase 175 U/L (46-116); Anion Gap 11.9 mmol/L (7-16); Aspartate Amino Transferase 18 U/L (15-37); Bilirubin,Total 0.9 mg/dL (0.00-1.00); Blood Urea Nitrogen 9 mg/dL (7-18); Calcium 8.7 mg/dL (8.5-10.1); Carbon Dioxide 28 mmol/L (21-32); Chloride 103 mmol/L (98-108); Estimated CRCL calculation 88 ml/min; Estimated Glomerular Filt Rate > 60; Glucose 83 mg/dL (70-99); Osmolality Calculated 285 mOsm/kg (285-295); Potassium 3.9 mmol/L (3.5-5.1); Sodium 139 mmol/L (136-145); Total Protein 7.3 g/dL (6.4-8.2)
--- NOTE | 2019-12-15 03:26 | PC.NURSE ---
0300 erp notified of request for pain medication. explained allergies to morphine, toradol, ultram, to erp. awaiting lab results.
[2019-12-15 03:27] LABS: CRP 2.9 mg/dL (0.0-0.9)
--- NOTE | 2019-12-15 03:43 | ED.ABDPAIN ---
HPI - Abdominal Pain General Chief Complaint: Abdominal Pain Stated Complaint: Abdominal Pain Time Seen by Provider: 12/15/19 03:43 Source: patient Mode of arrival: ambulatory Limitations: no limitations History of Present Illness MD elicited complaint: abdominal pain Pertinent past history: other (Chronic pain from Crohn's Dz) Onset (ago): day(s) (1) Pain Consistency: intermittent Location: diffuse Severity: moderate Quality: cramping Radiation: none Relieving factors: nothing Related Data Home Medications Medication Instructions Recorded Confirmed alprazolam 0.5 mg PO PRN PRN 09/24/19 12/15/19 budesonide-formoterol 2 puff INHALATION BID 09/24/19 12/15/19 zolpidem 10 mg PO HS 09/24/19 12/15/19 prednisone 20 mg PO DAILY 12/15/19 12/15/19 Allergies Allergy/AdvReac Type Severity Reaction Status Date / Time promethazine Allergy Severe Siezure Verified 08/19/18 18:29 diphenhydramine Allergy Intermediate Hives / Verified 08/19/18 18:29 [place] metoclopramide Allergy Intermediate Hives / Verified 08/19/18 18:29 [place] metronidazole Allergy Intermediate Hives / Verified 08/19/18 18:29 [place] tramadol Allergy Intermediate Hives / Verified 08/19/18 18:29 [place] ketorolac Allergy Unknown Unknown Unverified 11/23/19 08:08 morphine AdvReac Intermediate Cramping Verified 11/23/19 08:08 of the Muscles Review of Systems Constitutional: Constitutional: Denies chills and Denies fever(s) ENT: Reports system reviewed and no additional complaints, except as documented Cardiovascular: Cardiovascular: Reports no additional cardiovascular complaints Respiratory: Respiratory: Reports no additional respiratory complaints Gastrointestinal: Gastrointestinal: Denies bloating and Denies constipation Genitourinary: Genitourinary: Reports no additional male genitourinary complaints Musculoskeletal: Musculoskeletal: Reports no additional musculoskeletal complaints Integumentary/Breasts: Skin/Breast: Reports system reviewed and no additional complaints, except as docu Neurologic: Reports system reviewed and no additional complaints, except as documented PMFSH Past Medical History Medical History Asthma Crohn's disease Crohn's disease of both small and large intestine with complication Dental caries associated with enamel hypomineralization Extensive dental caries with multiple broken teeth Depression Eczema Leukocytosis Nausea Rheumatoid arthritis Surgical History Surgical History History of bowel resection X2: Both surgeries performed at [facility] 8 ft bowel resected the 1st surgery in 2010 and 4.5 feet resected 2nd surgery and 2012 Large bowel perforation Requiring surgical repair [facility] 2013 Family History Family History Mother , At age 60 due to heart disease related to diabetes Congestive heart failure Acute myocardial infarction Heart disease Diabetes mellitus Father Diabetes mellitus Social History Social History Smoking packs per day: 0.5 Smoking cigarettes per day: 10.0 Years smoked: 1 Smoking pack-years: 0.50 Smoking status: Current every day smoker Tobacco type: cigarettes Second hand tobacco smoke exposure: Yes Additional smoking assessment comments: He reports that he smokes 1 cigarette a day on occasion. Alcohol intake: never Substance use: current Substance use type: marijuana Other substance usage details: Reports that he uses marijuana on occasion. Last use: 11/21/2019 Additional living arrangements comments: He lives at home with his fiancee of 10 years and their 2-year-old foster son that they were trying to adopt. Additional occupation/education comments: He works at a [employer].
[2019-12-15] MEDS: methylPREDNISolone SOD SUCC 125 MG VIAL IV PUSH (03:59)
[2019-12-15 04:03] LABS: Erythrocyte Sedimentation Rate 24 mm/hr (0-15)
[2019-12-15 04:29] VITALS: BP 113/64; PULSE 87; TEMP 37.1; O2SAT 98
== END 2019-12-15 04:30 | disposition home or self-care (01) ==
PROVIDERS: Emergency Provider Emergency Medicine; PCP Nurse Practitioner Adult Health
DX: K50.80 Crohn's disease of both small and large intestine without complications (principal)
CPT/HCPCS: 36415; 80053; 85025; 85652; 86140; 96361; 96374; 96375; 99284; J2405; J2930; J7030